=== PATIENT | male | born 1950 | race Caucasian/White ===

== ENCOUNTER → 2023-06-20 | Outpatient (CLI) | payer MEDICARE ==
--- NOTE | 2023-06-20 21:22 | MR ---
EXAMINATION TYPE: MR Prostate wo/w con DATE OF EXAM: 06/20/2023 10:22 AM COMPARISON: None. CLINICAL INDICATION:Male, 73 years old with history of R97.20 Elevated PSA levels; Elevated PSA. TECHNIQUE: Multi-planar, multi-sequence imaging of the pelvis is performed prior to and following the uncomplicated administration of bolus intravenous gadolinium. CONTRAST: 12 Gadavist Interpretive Criteria: PI-RADS v2.1 SERUM PSA: 7.0 on 05/19/2023. No data available. on No data available.. No data available. on No data available.. No data available. on No data available.. SURGICAL PATHOLOGY: No data available. FINDINGS: Prostatic dimensions: 5.7 x 6.2 x 4.3 cm. Ellipsoid Volume:79.57 (PSA density=0.09 ng/mL/mL) CENTRAL GLAND (Central and Transition Zones/CZ+TZ): Multiple bilateral, heterogenous appearing hypertrophic stromal nodules, without suspicious lesion. M edian lobe hypertrophy with protrusion into the base of the bladder. (PI-RADS 2) PERIPHERAL ZONE (PZ): Bilateral linear, indistinct wedgelike areas of low ADC, and low T2 signal, No evidence of masslike a bnormality, or localized perfusional hypervascularity, to further suggest a focus of clinically signi ficant prostate cancer. (PI-RADS 2) SEMINAL VESICLES (SV): Symmetric and unremarkable. PERIPROSTATIC TISSUES: Unremarkable. LYMPH NODES: No enlarged pelvic lymph node. REMAINING PELVIS: Bladder wall is within normal limits given distention. No abnormal free or organized intrapelvic fluid collection. No pathologic bowel dilation or mural thickening. Bilateral fat containing inguinal hernias. OSSEOUS STRUCTURES: No suspicious osseous abnormality. IMPRESSION: 1. No specific features for high-risk prostate cancer. Maximum PI-RADS score: 2. 2. Moderate BPH, estimated gland volume 79.57 mL. 3. No suspicious osseous lesion. No lymphadenopathy. No evidence of prostate adenocarcinoma involving the periprostatic tissues.
== END | disposition home or self-care (01) ==
LOC: RADMRIMAIN 08:55
PROVIDERS: ATTEND Urology
DX: N40.0 Benign prostatic hyperplasia without lower urinary tract symptoms (principal); R97.20 Elevated prostate specific antigen [PSA]
CPT/HCPCS: 72197; A9585